=== PATIENT | male | born 1950 | race Caucasian/White ===

== ENCOUNTER 2024-08-24 10:45 | Inpatient (IN) | payer MEDICARE, SELFPAY ==
[2024-08-24 11:53] VITALS: BP 129/62; PULSE 58; RESP 17; TEMP 36.8; O2SAT 96; BMI 22.0
[2024-08-24] MEDS: Heparin Injection (Vial) 5,000 UNIT/ML VIAL 5000 UNIT SC ×2 (14:27→21:34)
[2024-08-24 17:43] VITALS: BP 124/61; PULSE 55; RESP 16; TEMP 37; O2SAT 97
[2024-08-24] MEDS: Atorvastatin Calcium 80 MG Tablet PO (21:37)
[2024-08-25 03:15] VITALS: BMI 22.0
[2024-08-25] MEDS: Heparin Injection (Vial) 5,000 UNIT/ML VIAL 5000 UNIT SC ×2 (05:39→14:36)
[2024-08-25 05:45] VITALS: BP 123/65; PULSE 56; RESP 18; TEMP 36.6; O2SAT 97
[2024-08-25 05:50] LABS: Hematocrit 46.5 % (40-54); Hemoglobin 15.4 g/dL (13.0-16.5); Mean Corp Hgb Conc 33.1 g/dL (32-36); Mean Corpuscular Hgb 29.1 pg (27.0-32.0); Mean Corpuscular Volume 87.7 fL (80-94); Mean Platelet Vol. 8.7 fl (6.2-12.0); Platelet Count 207 K/mm3 (150-450); RBC Distribution Width CV 12.3 % (11.6-14.6); RBC Distribution Width SD 39.4 fl (35.1-43.9); White Blood Count 6.2 K/mm3 (4.4-11.0)
[2024-08-25 06:23] LABS: ALB/GLOB Ratio 1.1 RATIO (0.9-2.4); AST(SGOT) 65 U/L (15-37); Alanine Aminotransfer ALT/SGPT 84 U/L (16-61); Albumin, Serum 3.5 g/dL (3.2-5.0); Alkaline Phosphatase 89 U/L (45-117); Anion Gap 5 (5-15); BUN 25 mg/dL (7-18); BUN/Creat Ratio 17.9 RATIO (10-20); Calcium,Total 8.9 mg/dL (8.5-10.1); Chloride 104 mmol/L (98-107); EST Glomerular Filtration Rate 53 mL/min (>60); Est Glom Filt Rate - Afr Amer 64 mL/min (>60); Estimated Creatinine Clearance 45.18 ml/min; Globulin 3.1 g/dL (2.2-4.2); Glucose 99 mg/dL (74-106); Magnesium 2.1 mg/dL (1.6-2.6); Phosphorus 3.3 mg/dL (2.5-4.9); Potassium 4.4 mmol/L (3.5-5.1); Protein, Total 6.6 g/dL (6.4-8.2); Sodium Level 137 mmol/L (136-145)
[2024-08-25] MEDS: Aspirin E.C. 81 MG Tablet PO (08:14)
[2024-08-25] MEDS: Clopidogrel Bisulfate 75 MG Tablet PO (08:14)
[2024-08-25] MEDS: amLODIPine 5 MG Tablet PO (08:14)
[2024-08-25] MEDS: Cholecalciferol (VIT D3) 25 MCG TABLET (1,000 UNITS) 50 MCG PO (08:14)
--- NOTE | 2024-08-25 09:43 | HP.PCM_ITS ---
HPI - General General Date of Admission: 08/24/24 Date of Service: 08/25/24 Chief Complaint: Poststroke debility HPI Narrative RADU FLORES, is a 73-year-old M who denied any significant medical history other than ocular migraines who presented to [facility] on 08/20/2024 complaining of slurred speech and right-sided weakness. He also complained of nausea without vomiting as well as dizziness. He had first noticed the symptoms on 08/19/2024 when he was hiking. Noncontrast CT brain was negative for acute stroke. 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 NIHSS score was reportedly 0. Teleneurology was consulted and he was not a candidate for thrombolytics due to the last known well being greater than 4.5 hours prior to presentation to the emergency department. He was given a loading dose of Plavix 300 mg and then started on 75 mg daily. He was also giving a loading dose of aspirin, 325 mg, and then started on 81 mg daily. He was also started on atorvastatin 80 mg nightly. After admission he was started on amlodipine 5 mg daily. He was admitted to a telemetry floor for further workup. MRI of the brain showed acute/early subacute infarction in the radha to the left of midline. Transthoracic echocardiogram showed a normal ejection fraction of 55 to 60% with no wall motion abnormalities. There was left ventricular concentric remodeling with grade 1 diastolic dysfunction. Bubble contrast study was negative. Left and right atria were both of normal size. There was evidence of mild aortic valve stenosis. The right ventricular systolic pressure was estimated at 36 which is consistent with mild pulmonary hypertension. LDL was 166 and the HDL was 49. Triglycerides were 83. Hemoglobin A1c was 5%. He was seen by therapy at the previous hospital and they recommended acute [place] rehab [place]. He was transferred to the acute inpt rehab unit at [facility] on 08/24/24 for 3 hours of therapy daily to restore function/independence at or near his level prior to the stroke. Afebrile VSS -heart rate since admission has ranged from 55-58. Blood pressure has ranged from 123/65 to 129/62. Maintaining appropriate oxygen saturation on RA - 96 to 97% Oral intake - FOOD good FLUIDS good Discussed with nursing - no problems that need addressed. Slept well last night Reviewed the THERAPY notes Medication list reviewed. All lab drawn this morning was personally reviewed. The CBC is normal. Sodium is 137 and the potassium is 4.4. The BUN is 25 with a creatinine of 1.4 and a GFR of 53. Phosphorus is 3.3 and the magnesium is 2.1. Calcium is within normal limits. Transaminases are mildly elevated. The AST is 65 and the ALT is 84. Bili and alk phos are within normal limits. [facility] Medical History (Updated 08/25/24 @ 18:[address] Mary Carmen Howard DO) Essential tremor Dyslipidemia HTN (hypertension) Ocular migraine Stroke/cerebrovascular accident Home Medications ?Medication ?Instructions ?Recorded ?Last Taken ?Type amlodipine 5 mg tablet (Norvasc) 5 mg PO DAILY bp 09/16 Unknown History aspirin 81 mg tablet,delayed 81 mg PO DAILY heart 09/16 Unknown History release (Adult Low Dose Aspirin) atorvastatin 80 mg tablet (Lipitor) 80 mg PO QHS carley sterol 08/24/24 Unknown History cholecalciferol (vitamin D3) 25 50 mcg PO DAILY vitami n 08/24/24 Unknown History mcg (1,000 unit) chewable tablet (Vitamin D3) clopidogrel 75 mg tablet (Plavix) 75 mg PO DAILY strok e 08/24/24 Unknown History Allergy/AdvReac Type Severity Reaction Status Date / Time Penicillins Allergy Mild Rash Verified 08/24/24 11:59 lactase AdvReac Mild Diarrhea Verified 08/24/24 11:59 Family History (Updated 08/25/24 @ 17:[address] Mary Carmen Howard DO) Mother , in her mid nineties. Stroke at 95 CVA (cerebral vascular accident) Hypertension Heart disease Father , at [id number] Cancer Lung cancer Heart disease Surgical History (Updated 08/25/24 @ 16:[address] Mary Carmen Howard DO) History of tonsillectomy History of herniorrhaphy History of circumcision History of appendectomy Social History (Updated 08/25/24 @ 17:[address] Mary Carmen Howard DO) household members: spouse housing: house Smoking Status: Never smoker alcohol intake: current alcohol intake frequency: holidays/special occasions only ROS Review of Systems ROS Unobtainable: Denies due to encephalopathy, due to endotracheal tube, due to mental condition or due to mental status Constitutional Constitutional: Reports fatigue and snoring; Denies anorexia, change in weight, chills, fever(s), night sweats or weakness Eyes Eyes: Denies blurry vision, change in vision, eye pain or loss of vision ENT HEENT: Reports disequillibrium, dizziness and foreign body in nose; Denies abnormal hearing, dysphagia, headache(s), hearing loss, nasal congestion or sore throat Cardiovascular Cardiovascular: Denies chest pain, dyspnea on exertion, edema, lightheadedness, orthopnea, palpitations, paroxysmal nocturnal dyspnea or syncope Respiratory/Chest Respiratory/Chest: Reports snoring and other Details: restless leg at night at times. ; Denies cough, dyspnea, shortness of breath at rest, shortness of breath with exertion or wheezing Gastrointestinal Gastrointestinal: Denies abdominal pain, constipation, diarrhea, dyspepsia, hematemesis, hematochezia, nausea or vomiting Genitourinary Genitourinary: Reports nocturia and other Details: Nocturia 1-2 times a night. Stream is little slower than normal but not retaining. ; Denies dysuria, hematuria, urinary frequency, urinary hesitancy, urinary incontinence or urinary urgency Musculoskeletal Musculoskeletal: Denies back pain, joint pain, joint swelling or neck pain Integumentary Integumentary: Denies acne, changing lesions, jaundice or rash Neurologic Neurologic: Reports disequilibrium, dizziness, focal weakness, lack of coordination, restless legs and other Details: some trouble word finding and some slurring of speech. Thought process seems a little slower than his normal ; Denies confusion, headache(s), paresthesias, seizures or tremor(s) Psychiatric Psychiatric: Denies anxiety, depression, homicidal ideation or suicidal ideation Endocrine Endocrinology: Denies change in body appearance, polydipsia or polyuria Hematologic/Lymphatic Hematologic/Lymphatic: Denies easy bleeding, easy bruising or lymphadenopathy Allergic/Immunologic Allergic/Immunologic: Denies rhinitis, eczemia or asthma Vital Signs Vital Signs Vital Signs: 08/24/24 11:53 08/24/24 17:43 08/24/24 21:47 Temperature 98.3 F 98.6 F Temperature Source Oral Temporal Pulse Rate 58 L 55 L Pulse Strength Normal (2+) Respiratory Rate 17 16 Blood Pressure 129/62 H 124/61 H Blood Pressure Mean 84 82 Blood Pressure Source Monitor Monitor Blood Pressure Position Semi-Fowlers Sitting Blood Pressure Location Left Arm Left Arm Pulse Ox 96 97 Oxygen Delivery Method Room Air Room Air 08/25/24 05:45 Temperature 97.9 F Temperature Source Oral Pulse Rate 56 L Pulse Strength Respiratory Rate 18 Blood Pressure 123/65 H Blood Pressure Mean 84 Blood Pressure Source Monitor Blood Pressure Position Semi-Fowlers Blood Pressure Location Left Arm Pulse Ox 97 Oxygen Delivery Method Room Air Weight Weight: 145 lb 8.081 oz Body Mass Index (BMI) 22.0 Indicators for Scoring Admitted with or Primary Diagnosis of CVA/Stroke: Yes Hx of CVA/Stroke: Yes Modified Columbia Score MRS Score at time of Evaluation: 3-Moderate disability NIHSS NIHSS 1a. Level of Consciousness: Alert; keenly responsive 1b. LOC Questions: Answers BOTH questions correctly. 1c. LOC Commands: Performs both tasks correctly. 2. Best Gaze: Normal 3. Visual: No visual loss 4. Facial Palsy: Normal symmetrical movements 5a. Left Arm: No drift; arm holds 90 (or 45) degrees for full 10 seconds 5b. Right Arm: No drift; arm holds 90 (or 45) degrees for full 10 seconds (no drift but, the staff development manager strength is weaker on the R and he is R handed. ) 6a. Left Leg: No drift; leg holds 30-degree position for full 5 seconds 6b. Right Leg: No drift; leg holds 30-degree position for full 5 seconds (definitely weaker in the R leg and decreased plantar and dorsiflexion with the R foot) 7. Limb Ataxia: Absent 8. Sensory: Normal; no sensory loss 9. Best Language: [id number] aphasia; (very mild with occasional word finding difficulty. Had trouble identifying the weiner but, was eventually able to name it) 10. Dysarthria: [id number] dysarthria; 11. Extinction and Inattention: No abnormality Total: 2 Stroke Questions Stroke Team Activated: No Physical Exam Const alert, oriented x3, no apparent distress, healthy appearing and well nourished General Appearance: cooperative, well kempt and well developed HEENT head/scalp atraumatic and hearing grossly normal bilaterally Eyes PERRL, EOMs intact bilaterally, conjunctivae normal and no scleral icterus Eyes Narrative: No discharge from the eyes and no mattering of the eyelashes. General Eye: normal appearance of both eyes Neck supple, no JVD and No nodes Neck Narrative: Soft carotid bruits versus radiation of the murmur. General: trachea midline Carotids: other Other Details: Brisk carotid upstroke with good pulse volume Chest Chest: symmetrical chest wall rise Resp normal respiratory effort, normal air movement, no use of accessory muscles and clear to auscultation bilaterally Effort and Inspection: able to speak in complete sentences and symmetric chest movement Cardio regular rate, regular rhythm, S1 normal heart sound, S2 normal heart sound, no rub and no gallops Cardio Narrative: No ectopy. Stage II systolic ejection murmur heard best at the second right intercostal space with radiation to the lower left sternal border and apex. GI normal to inspection, nondistended, normoactive bowel sounds, soft to palpation and non-tender GI Narrative: No guarding with palpation and no abdominal bruits. no CVA tenderness Back/Spine normal to inspection Back/Spine Narrative: No pain with palpation/percussion over the vertebrae. No scoliosis Extremity no calf tenderness and no pedal edema Skin no jaundice Skin Narrative: Patchy ecchymosis over the abdominal wall secondary to heparin injections. No rashes Neuro oriented x3, CN's II-XII intact bilaterally, moves all extremities and no sensory deficits noted Neuro Narrative: No ataxia. No extinction. No visual field cuts. Mild dysarthria. Occasional trouble with word finding. Definitely weaker in the right arm and right leg the knee is on the left side. Also has weaker plantarflexion and dorsiflexion of the right foot. Tongue protrudes on the midline. Palate elevates symmetrically. Denies difficulty swallowing. Having some trouble with reading. Disequilibrium with ambulation. Improved somewhat with a walking stick Psych cooperative and affect normal Appearance: grossly normal, appropriate and well kempt Attitude: calm and engaged Activity / Motor Behavior: appropriate eye contact Results Lab / Micro Data 08/25/24 05:39 08/25/24 05:39 Labs: Laboratory Results - last 24 hr 08/25/24 05:39: WBC 6.2, RBC 5.30, Hgb 15.4, Hct 46.5, MCV 87.7, MCH 29.1, MCHC 33.1, RDW Std Deviation 39.4, RDW Coeff of Shimon 12.3, Plt Count 207, MPV 8.7, Sodium 137, Potassium 4.4, Chloride 104, Carbon Dioxide 27.0, Anion Gap 5, BUN 25 H, Creatinine 1.40 H, Estim Creat Clear Calc 45.18, Est GFR (MDRD) Af Amer 64, Est GFR (MDRD) Non-Af 53 L, BUN/Creatinine Ratio 17.9, Glucose 99, Calcium 8.9, Phosphorus 3.3, Magnesium 2.1, Total Bilirubin 0.80, AST 65 H, ALT 84 H, Alkaline Phosphatase 89, Total Protein 6.6, Albumin 3.5, Globulin 3.1, Albumin/Globulin Ratio 1.1 Assessment & Plan Assessment/Plan (1) Debility: (2) Stroke/cerebrovascular accident: QUALIFIERS: CVA mechanism: unspecified Qualified Code(s): I63.9 - Cerebral infarction, unspecified PLAN: Left radha (3) Dysarthria: (4) Right-sided muscle weakness: (5) Cognitive dysfunction: (6) Dysequilibrium: (7) Grade I diastolic dysfunction: (8) Mild aortic stenosis: (9) LVH (left ventricular hypertrophy): (10) Mild pulmonary hypertension: PLAN: PA systolic was estimated at 36 on a transthoracic echocardiogram. (11) Restless leg: PLAN: Occasional (12) Bradycardia: (13) Dyslipidemia: (14) HTN (hypertension): QUALIFIERS: Hypertension type: primary hypertension Qualified Code(s): I10 - Essential (primary) hypertension (15) Essential tremor: PLAN: Has never seen a neurologist for this and has never been on medication. He does have a relative with essential tremor who is on medication. He will have to follow up with neurology for stroke so will also have neurology address the tremor. (16) Transaminitis: PLAN: Due to atorvastatin 80 mg? Fatty infiltration PLAN: Plan PLAN PT for gait stability OT for ADL's ST for evaluation Analgesics as needed Bowel protocol Fall precautions Assess for Anxiety/Depression GI prophylaxis -not necessary at this time. He denies any history of peptic ulcer disease and he also denies nausea/vomiting/heartburn/epigastric pain. DVT prophylaxis with Lovenox 40 mg subcu daily Follow up with PCP, neurology, cardiology following DC from IP Rehab AM lab including CMP, CBC, Mag and Phos -personally reviewed We discussed the goals for treatment. BP<130/80, LDL 70 or less 30-day event monitor at discharge Overnight trending pulse ox tonight Obtain records from PCP, marilyn any liver testing. 1. Do you snore loudly? Yes 2. Do you often feel tired, fatigued or sleepy during the day? No 3. Has anyone ever observed you stop breathing during sleep? No, but he has awakened himself snoring. 4. Do you have (or are you being treated for) HTN? Yes BMI 22.1 AGE 73 Neck circumference less than 40 cm Gender male Total 4 Falls asleep easily when reading or riding in a car for more than 15-20 minutes. Does not nap. Has restless legs at night. Admitted with stroke. Nocturia. [place] in the mornings.....he has an elastic band he applies to the top of his head and around the chin when sleeping to help with snoring. PA pressure is elevated at 36. Charges/Coding Visit Charges Inpatient E&M: 36322 Init Hosp L3
--- NOTE | 2024-08-25 09:44 | REHABEVAL_ITS ---
Admission Information Primary Diagnosis:: Poststroke debility Status Changes from Prescreening?: No changes Identified Actual Problem List:: Cognitve Impr/Memory Loss, Mobility Impaired, Self Care Deficit and Know.Dfct of Medicaitons Potential Problem List:: DVT, Bleeding, Infection, UTI, Aspiration, Falls, Skin Integrity and Depression Risk of Complications DVT: LMWH and ANUPAMA Hose Bleeding: Monitor Lab Values, Nursing to Teach Precautions for anti-coagulation therapy., Wound, if applicable, to be assessed every shift. and Stroke patients assessed for lethargy or change in status. Infection: Clinical Staff to Monitor for S/S of infection: and S/S of infection include fever, redness, warmth, etc. Urinary Tract Infection: Monitor for frequency, burning, discomfort, or incontinence. and Nursing will obtain urine sample for urinalysis and C&S when ordered. Aspiration: Clinical staff will monitor for coughing, drooling, congestion., Speech will evaluate swallowing and dsyphasia. and Nursing will monitor patient swallowing during meals. Falls: Patient will be evaluated for Fall Precautions and Patient will be placed on Fall Precautions as indicated per protocol. Skin Breakdown: Nursing will assess skin daily using assessment tool. and Nursing will place on Skin Breakdown Precautions as indicated. Pain: Clinical staff will assess patient's pain level per protocol., Medications will be given, if needed, and the pain level reassessed. and Other methods: Massage, distraction, decrease stimulus, etc. used PRN. Plan of Care Patient requires physician specializing in physical medicine and rehab oversight to provide close medical supervision of rehab issues including: Pain Management, Sleep Problems, Bowel and Bladder, Medical and co-morbidity Management, DVT prophylaxis, Rehabilitation Leadership and Coordination of treatment team Patient needs Physical Therapy: For a minimum of 1 hour and At least 5 out of 7 days Patient needs Physical Therapy to improve:: Mobility, Strengthening, Transfers, Stretching, ROM, Endurance, Stairs, Gait and Balance Patient needs Occupational Therapy: For a minimum of 1 hour and At least 5 out of 7 days Patient needs Occupational Therapy to improve ADL's incl.: Eating, Grooming, Bathing, Dressing, Toileting, Toilet transfers, Community Reintegration, Higher functioning activities, Household tasks, Adaptive Equipment, Splinting and Other activities as determined Patient requires speech therapy: For a minimum of 1 hour and At least 5 out of 7 days Patient requires speech therapy for: Swallowing, Cognition, Language Skills and Compensatory Strategies Patient requires 24/7 Rehabilitation Nursing for: Pain Issues, Identifying and preventing risk factors, Monitoring and reporting current medical conditions, Assisting with ambulation, transfer, and all ADL's, Teaching patients about d isease process and medications, Family teaching, Providing safe environment, Bowel and Bladder Issues, Skin integrity and Medication Management Patient needs Coating Mixer Supervisor/ Case Management for: Discharge Planning, Arranging Home Equipment or Services and Family Interventions Patient needs Dietary and Nutrition Services for: Adequate Nutrition, Nutr itional Supplements and Nutritional Education Goals Goals Patient will remain: free from falls Patient will perform eating at: MOD I level of assist. Patient will perform bed mobility at: MOD I level of assist. Patient will complete transfers from bed to chair at: MOD I level of assist. Patient will ambulate: - (500 feet on various surfaces independently or with least restrictive device at mod I) Patient will complete upper body dressing at: MOD I level of assist. Patient will complete lower body dressing at: MOD I level of assist. (With adaptive equipment as needed) Patient will complete toilet transfer at: MOD I level of assist. Patient will complete toileting at: MOD I level of assist. Patient will perform bathing at: MOD I level of assist. (Upper body bathing independently and lower body bathing at mod I with adaptive equipment as necessary) Patient will perform Tub/Shower transfer at: - (Supervision for the first 1 to 2 weeks using DME as needed) Patient will complete grooming at: MOD I level of assist. (While standing at the sink) Patient will complete home management skills at: MOD I level of assist. Patient will achieve: - (14 steps with 1 handrail at standby assist to allow access to his basement) Patient will have pain level of: of 3 or less Patient's skin will: remain intact Patient will receive: adequate nutrition. Discharge Planning Pt Prognosis for Sig. Practical Improv. w/in Reasonable Time: Good Estimated Length of stay (days): 14 Anticipated D/C Destination: Home with Outpt Therapy Was Preadmission Assessment Accurate?: Yes
--- NOTE | 2024-08-25 16:15 | CHAPLAIN ---
Type of Pastoral Visit _x__ Initial Visit ___ Follow-up Visit ___ On-call Visit ___ General Patient Visit ___ Spiritual Assessment ___ Family Conference ___ Bereavement ___ Rapid Response ___ Code Blue ___ Other (describe below) Pastoral Care Referral From _x__ Patient ___ Family ___ Nurse ___ Physician ___ Game Designer/Creative Director ___ Sawmill Equipment Operator ___ Other (describe below) Sacrament/Intervention _x__ Active listening ___ Anointing ___ Sabianism ___ Bereavement ___ Communion _x__ Laila exploration ___ _x__ Life review _x_ Prayer ___ Reconciliation ___ Sacrament of Sick _x__ Supportive presence ___ Wedding ___ Other (describe below) Pastoral Comments good conversation to get acquainted with the patient; pt is optimistic about his care and recovery; pt has family and holiness support; pt gives some life review and information about his holiness; pt has strong laila in God and welcomes prayer and presence of barrel assembly inspector today
[2024-08-25 17:00] VITALS: BMI 22.0
[2024-08-25] MEDS: Atorvastatin Calcium 80 MG Tablet PO (21:59)
[2024-08-25 22:53] VITALS: PULSE 68; O2SAT 97
[2024-08-26 05:45] VITALS: BP 128/62; PULSE 61; RESP 16; TEMP 36.7; O2SAT 97
[2024-08-26] MEDS: Enoxaparin 40 MG/0.4 ML Syringe SC (05:47)
[2024-08-26] MEDS: amLODIPine 5 MG Tablet PO (09:25)
[2024-08-26] MEDS: Aspirin E.C. 81 MG Tablet PO (09:25)
[2024-08-26] MEDS: Clopidogrel Bisulfate 75 MG Tablet PO (09:25)
[2024-08-26] MEDS: Cholecalciferol (VIT D3) 25 MCG TABLET (1,000 UNITS) 50 MCG PO (09:26)
[2024-08-26 10:58] VITALS: O2SAT 96
--- NOTE | 2024-08-26 14:14 | PCM.PROGNOTE ---
Subjective Subjective Afebrile VSS -blood pressure is at goal. Heart rate is ranged from 56-68 over the past 24 hours. Maintaining appropriate oxygen saturation on RA Oral intake - FOOD good FLUIDS good I&O are not accurate. Staff has been refilling his ice water without keeping track. Discussed with nursing - no problems that need addressed Reviewed the THERAPY notes ST was told by the pt that they were thickening his liquids at the previous hospital. He complains that his vocal quality is more harsh than it was previously. Using a walking stick for ambulation.....more stable. Medication list reviewed. I reviewed the overnight trending pulse ox and there are no desaturation events. Denies cephalgia, vertigo, chest pain, shortness of breath, cough, palpitations, nausea/vomiting/abdominal pain, dysuria and calf tenderness. Tells me that he slept well last night. Objective Data Objective Data Vital Signs: Vital Signs Temp Pulse Resp BP Pulse Ox O2 Del Method O2 Flow Rate 98.0 F 61 16 128/62 H 96 Room Air 0 08/26/24 05:45 08/26/24 05:45 08/26/24 05:45 08/26/24 05:45 08/26/24 10:58 08/26/24 10:58 08/25/24 22:53 FiO2 21 08/25/24 22:53 Oxygen Flow Rate (L/min) 0 Oxygen Delivery Method Room Air Weight: 145 lb 8.081 oz Body Mass Index (BMI) 22.0 Intake & Output: Intake and Output for Last 24 Hours 08/24/24 08/25/24 08/26/24 23:59 23:59 23:59 Intake Total 600 / 1000 1940 / 1940 840 / 840 Output Total 1200 / 1200 1850 / 1950 800 / 800 Balance -600 / -200 90 / -10 40 / 40 Lab / Micro Data 08/25/24 05:39 08/25/24 05:39 Physical Exam Const alert and oriented x3 General Appearance: cooperative HEENT moist oral mucous membranes Resp normal respiratory effort and clear to auscultation bilaterally Effort and Inspection: Negative for tachypneic Cardio regular rate, regular rhythm, no rub and no gallops Cardio Narrative: No ectopy. No change in the aortic stenosis murmur. GI normal to inspection, nondistended, normoactive bowel sounds, soft to palpation and non-tender GI Narrative: No abdominal bruits Skin Rashes: no rashes Assessment & Plan Assessment/Plan (1) Debility: (2) Stroke/cerebrovascular accident: QUALIFIERS: CVA mechanism: unspecified Qualified Code(s): I63.9 - Cerebral infarction, unspecified PLAN: Left radha (3) Dysarthria: (4) Right-sided muscle weakness: (5) Cognitive dysfunction: (6) Dysequilibrium: (7) Grade I diastolic dysfunction: (8) Mild aortic stenosis: (9) LVH (left ventricular hypertrophy): (10) Mild pulmonary hypertension: PLAN: PA systolic was estimated at 36 on a transthoracic echocardiogram. (11) Restless leg: PLAN: Occasional (12) Bradycardia: (13) Dyslipidemia: (14) HTN (hypertension): QUALIFIERS: Hypertension type: primary hypertension Qualified Code(s): I10 - Essential (primary) hypertension (15) Essential tremor: PLAN: Has never seen a neurologist for this and has never been on medication. He does have a relative with essential tremor who is on medication. He will have to follow up with neurology for stroke so will also have neurology address the tremor. (16) Transaminitis: PLAN: Due to atorvastatin 80 mg? Fatty infiltration PLAN: Plan 1. Continue therapy 2. Speech therapy plans on a FEES to look for silent aspiration/dysphagia 3. Follow up with neurology as OP for stroke and for essential tremor. 4. 30-day event monitor at discharge and follow-up with cardiology. 5. Continue dual antiplatelet agents for a total of 3 to 4 weeks. 6. Recheck a lipid/liver panel on 09/01/2024 Charges/Coding Visit Charges Inpatient E&M: 62187 Subs Hosp L1
[2024-08-26 15:56] VITALS: BMI 22.0
[2024-08-26 17:36] VITALS: BP 129/69; PULSE 57; RESP 16; TEMP 36.4; O2SAT 100
[2024-08-26] MEDS: Atorvastatin Calcium 80 MG Tablet PO (23:06)
[2024-08-27 06:00] VITALS: BP 135/61; PULSE 54; RESP 16; TEMP 36.3; O2SAT 98
[2024-08-27] MEDS: Enoxaparin 40 MG/0.4 ML Syringe SC (06:37)
[2024-08-27 07:08] VITALS: O2SAT 98
[2024-08-27] MEDS: Aspirin E.C. 81 MG Tablet PO (09:30)
[2024-08-27] MEDS: Cholecalciferol (VIT D3) 25 MCG TABLET (1,000 UNITS) 50 MCG PO (09:30)
[2024-08-27] MEDS: amLODIPine 5 MG Tablet PO (09:30)
[2024-08-27] MEDS: Clopidogrel Bisulfate 75 MG Tablet PO (09:30)
[2024-08-27 14:37] VITALS: BMI 22.0
[2024-08-27 18:00] VITALS: BP 122/60; PULSE 56; RESP 16; TEMP 36.4; O2SAT 98
[2024-08-27 20:00] VITALS: PULSE 56; RESP 16; O2SAT 98; BMI 22.0
[2024-08-27] MEDS: Atorvastatin Calcium 80 MG Tablet PO (20:05)
[2024-08-28] VITALS (7 sets, daily range): BP systolic 114–135; BP diastolic 56–64; PULSE 55–61; RESP 16–18; TEMP 36.6–37.2; O2SAT 96–98
[2024-08-28 05:17] LABS: Anion Gap 5 (5-15); BUN 21 mg/dL (7-18); BUN/Creat Ratio 16.8 RATIO (10-20); Calcium,Total 8.7 mg/dL (8.5-10.1); Chloride 104 mmol/L (98-107); Creatinine, Serum 1.25 mg/dL (0.70-1.30); EST Glomerular Filtration Rate 60 mL/min (>60); Est Glom Filt Rate - Afr Amer 73 mL/min (>60); Glucose 95 mg/dL (74-106); Potassium 3.8 mmol/L (3.5-5.1); Sodium Level 137 mmol/L (136-145)
[2024-08-28] MEDS: Enoxaparin 40 MG/0.4 ML Syringe SC (06:12)
[2024-08-28] MEDS: Cholecalciferol (VIT D3) 25 MCG TABLET (1,000 UNITS) 50 MCG PO (09:20)
[2024-08-28] MEDS: Clopidogrel Bisulfate 75 MG Tablet PO (09:21)
[2024-08-28] MEDS: Senna/Docusate Sodium 1 Tablet 2 TABLET PO (09:21)
[2024-08-28] MEDS: Aspirin E.C. 81 MG Tablet PO (09:21)
[2024-08-28] MEDS: amLODIPine 5 MG Tablet PO (09:21)
--- NOTE | 2024-08-28 10:26 | HP.SPFEES ---
FEES Patient Information Date of Evaluation: 08/27/24 Time of Evaluation: 14:00 Diagnosis: CVA I63.9 Referring Physician: Mary Carmen Howard Staff Providing this Care/Treatment:: LISA Direct Billable Minutes: 99 History: Past Medical History:: PMH: Essential tremor, Dyslipidemia, HTN, Ocular migraine, CVA. Pt presented to [facility] on 08/20/2024 complaining of slurred speech and right-sided weakness w/ associated nausea and dizziness while hiking. Noncontrast CT brain was negative for acute stroke. 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 NIHSS score was reportedly 0. MRI of the brain showed acute/early subacute infarction in the radha to the left of midline. He was transferred to the acute inpt rehab unit at [facility] on 08/24/24 for 3 hours of therapy daily to restore function/independence at or near his level prior to the stroke. Pt referred for ST consult to assess concerns for dysarthria, cognitive linguistic impairment, and dysphagia. BCAT completed revealing cognitive functioning to be WNL. Speech production assessment revealed mild dysarthria. He has been recommended for FEES due to hoarse nature of vocal quality and concerns for dysphagia. ST at [facility] had him briefly on thickened liquids. No hx of instrumental assessment of swallow function. Current Diet: Drinks/Liquids:: Thin Foods:: Regular Respiratory Status Observation:: Room Air Vocal Quality: Observations:: Hoarse Comments:: Mild Cognition: Observations:: WFL Position During FEES: Position During FEES:: Upright Location: In Chair Fiberoptic Endoscope: Size: 3.4 mm Nare Used:: Left Anatomical Findings: Anatomical Findings:: Scarring on the posterior pharyngeal wall in the nasopharynx consistent w/ hx of tonsillectomy. Cobblestoning on posterior pharyngeal wall. Posterior pharyngeal wall, arytenoids, epiglottic petiole, and ventricular folds have mild edema. Tissue reddish throughout pharynx. Cobblestoning and edema concerning for GERD. Will recommend GI consult. Vocal fold adduction mostly complete, but small gapping between the anterior 2/3 of folds. True vocal folds also presented w/ small protrusions bilaterally on the posterior 1/3 of the folds, suspicious of vocal fold nodules. Will recommend ENT consult. Decreased pharyngeal contraction evident w/ vocal glides. Secretions: Description:: Thin and Clear Location:: Oropharynx Comment:: Laryngeal vestibule across the true vocal folds Penetration-Aspiration Scale Penetration-Aspiration Scale Thin Liquids by Teaspoon Food/Drink Provided:: green-colored ice chips and water Swallow Onset Location:: Pyriform Sinuses PAS Score: PAS Score *1 Visual Analysis of Swallowing Efficiency and Safety (VASES) after the swallow: Oropharynx VASES Comments:: 10% vallecula, <5% aryepiglottic folds Thin Liquids by Single Cup Food/Drink Provided:: green-colored water Swallow Onset Location:: Aryepiglottic Folds PAS Score: PAS Score *1 Visual Analysis of Swallowing Efficiency and Safety (VASES) after the swallow: Oropharynx and Hypopharynx Comments:: <5% vallecula, <5% pyriform sinuses Thin Liquids by Sequential Cup Food/Drink Provided:: green-colored water Swallow Onset Location:: Pyriform Sinuses Visual Analysis of Swallowing Efficiency and Safety (VASES) after the swallow: Oropharynx, Hypopharynx and Vocal Folds Comments:: 5% vallecula, 5% pyriform sinuses, <5% true vocal folds Additional Comments:: delayed, reflexive cough effectively cleared trace contrast on vocal folds Thin Liquids by Single Straw Food/Drink Provided:: green-colored water Swallow Onset Location:: Tongue Base and Vallecula PAS Score: PAS Score *1 Visual Analysis of Swallowing Efficiency and Safety (VASES) after the swallow: Oropharynx Comments:: <5% vallecula Thin Liquids by Sequential Straw Food/Drink Provided:: green-colored water Swallow Onset Location:: Vallecula PAS Score: PAS Score *1 Visual Analysis of Swallowing Efficiency and Safety (VASES) after the swallow: Oropharynx and Hypopharynx Comments:: <5% vallecula, <5% aryepiglottic folds Regular Textures Food/Drink Provided:: Celestina Doone cookie Swallow Onset Location:: Pyriform Sinuses PAS Score: PAS Score *1 Visual Analysis of Swallowing Efficiency and Safety (VASES) after the swallow: Oropharynx and Hypopharynx Comments:: 20% vallecula, 5% pyriform sinuses Strategies Trialed:: Liquid wash = somewhat effective in clearing pharyngeal residues Chin tuck = somewhat effective in clearing pharyngeal residues Diagnosis/Impressions Diagnosis: Mild pharyngeal dysphagia R13.12 Impressions: -Decreased pharyngeal contraction w/ mild residue in the vallecula most notable w/ cookie trial. Liquid wash and chin tuck somewhat cleared vallecula residues. -Decreased airway closure during the swallow w/ trace laryngeal penetration of sequential sips of thin liquids by cup to the vocal folds. Reflexive, delayed cough fully cleared penetrated contrast. No aspiration observed. Recommendations Diet: Regular Textures and Thin Liquids Medication Administration:: Whole with liquids Compensatory Strategies: Small Bites, Small Sips, Slow Rate, Sitting upright and Remain sitting upright for 30 minutes after PO intake Recommend Repeat Instrumental Swallow Assessment: No Need for Skilled Speech Therapy Services: Yes Comments: -Ongoing assessment of diet tolerance and training in strategies to decrease aspiration risk and clear pharyngeal residues. If sensation of pharyngeal retention despite liquid wash, consider use of chin tuck to clear residues. -Training in oropharyngeal strengthening (Farzana, effortful, Aleksandar). Recommended Referrals: GI Consult and ENT Consult Education Completed: 1. Described result of evaluation. and 2. Pt understands evaluation & agrees with goals and treatment plan. Frequency Frequency: 4-5x /Week Duration: 2-4 Weeks Goals that are Established Goal #1: (LTG 1) The patient will consume LRD textures w/o overt s/s of aspiration with 90% acc w/ independent use of strategies to decrease risk for aspiration. Goal #2: (STG 1) The patient will complete oropharyngeal exercises X10-15 reps, 3X daily w/ min verbal cues to promote improved pharyngeal motility and airway closure during the swallow (effortful, Farzana, Aleksandar).
--- NOTE | 2024-08-28 10:52 | PCM.PROGNOTE ---
Subjective Subjective Kip was seen on team rounds today. Ijeoma Watt was present in the room. All questions were answered to their satisfaction. Afebrile VSS -blood pressures over the past 24 hours have ranged from 122/68 to 135/64. Heart rate is ranged from 54-56. Today while exerting himself it went up to 78. Maintaining appropriate oxygen saturation on RA Oral intake - FOOD good FLUIDS good The last 2 postvoid residuals have been less than 30. Discussed with nursing - He c/o L ear pain last night to nursing. Actually he tells me that the pain is in the R parieto-occipital area. It seems to come and go. He denies ever having shingles. Reviewed the THERAPY notes Medication list reviewed. BMP today showed a sodium of 137, potassium of 3.8, BUN of 21, down from 25 to 08/25/24, and a creatinine of 1.25 which is down from 1.40 on 08/25/2524. Denies lightheadedness, chest pain, shortness of breath, palpitations, nausea/vomiting/abdominal pain, dysuria and calf tenderness. Still feeling somewhat unsteady with ambulation marilyn, when performing a cognitive function while walking. Objective Data Objective Data Vital Signs: Vital Signs Temp Pulse Resp BP Pulse Ox O2 Del Method O2 Flow Rate 97.8 F 55 L 16 135/64 H 97 Room Air 0 08/28/24 06:09 08/28/24 06:09 08/28/24 06:09 08/28/24 06:09 08/28/24 07:57 08/28/24 07:57 08/25/24 22:53 FiO2 21 08/25/24 22:53 Oxygen Flow Rate (L/min) 0 Oxygen Delivery Method Room Air Weight: 145 lb 8.081 oz Body Mass Index (BMI) 22.0 Intake & Output: Intake and Output for Last 24 Hours 08/26/24 08/27/24 08/28/24 23:59 23:59 23:59 Intake Total 2004 1500 / 1500 440 / 440 Output Total 1800 / 1800 1150 / 1150 700 / 700 Balance 205 / 205 350 / 350 -260 / -260 Lab / Micro Data 08/25/24 05:39 08/28/24 04:28 Labs: Laboratory Results - last 24 hr 08/28/24 04:28: Sodium 137, Potassium 3.8, Chloride 104, Carbon Dioxide 28.0, Anion Gap 5, BUN 21 H, Creatinine 1.25, Estim Creat Clear Calc 50.60, Est GFR (MDRD) Af Amer 73, Est GFR (MDRD) Non-Af 60, BUN/Creatinine Ratio 16.8, Glucose 95, Calcium 8.7 Physical Exam Const alert, oriented x3 and no apparent distress General Appearance: cooperative HEENT head/scalp atraumatic HEENT Narrative: No rash on the scalp. Neck supple Resp clear to auscultation bilaterally Cardio regular rate and regular rhythm Cardio Narrative: no ectopy GI normal to inspection, nondistended, normoactive bowel sounds, soft to palpation and non-tender Extremity no calf tenderness General Extremity: Negative for edema Skin Rashes: no rashes Assessment & Plan Assessment/Plan (1) Debility: (2) Stroke/cerebrovascular accident: QUALIFIERS: CVA mechanism: unspecified Qualified Code(s): I63.9 - Cerebral infarction, unspecified PLAN: Left radha (3) Dysarthria: (4) Right-sided muscle weakness: (5) Cognitive dysfunction: (6) Dysequilibrium: (7) Grade I diastolic dysfunction: (8) Mild aortic stenosis: (9) LVH (left ventricular hypertrophy): (10) Mild pulmonary hypertension: PLAN: PA systolic was estimated at 36 on a transthoracic echocardiogram. (11) Restless leg: PLAN: Occasional (12) Bradycardia: (13) Dyslipidemia: (14) HTN (hypertension): QUALIFIERS: Hypertension type: primary hypertension Qualified Code(s): I10 - Essential (primary) hypertension (15) Essential tremor: PLAN: Has never seen a neurologist for this and has never been on medication. He does have a relative with essential tremor who is on medication. He will have to follow up with neurology for stroke so will also have neurology address the tremor. (16) Transaminitis: PLAN: Due to atorvastatin 80 mg? Fatty infiltration PLAN: Plan 1. Continue therapy 2. Plan discharge on 08/31/2024. 3. Will chaeck the scalp again tomorrow.......early Shingles? No sore throat, no nasal congestion, not coughing, no pain in the neck or the shoulders. Charges/Coding Visit Charges Inpatient E&M: 03927 Subs Hosp L2
--- NOTE | 2024-08-28 13:05 | CASEMGMT ---
Social Work IDT met with patient and for Team meeting. Discussed patient's progress in PT/OT/ST/SN. Educated to Medicare approval of 8 days with DC 09/01, however, offered DC 08/31 d/t no therapy scheduled. Pt/ agreed to 08/31. Pt is mod I using a walking stick. Denied DME needs at DC. IDT recommending OP PT/OT. Pt agreeable. SW verbally provided options. Pt prefers [facility]. can transport home and to appts. Plan: DC home with 08/31, [facility] PT/OT. Melissa Sims [facility] COORDINATOR
[2024-08-28] MEDS: Atorvastatin Calcium 80 MG Tablet PO (21:04)
[2024-08-28] MEDS: Acetaminophen 325 MG Tablet 650 MG PO (21:04)
[2024-08-29 00:25] VITALS: BMI 22.0
[2024-08-29 05:00] VITALS: BP 127/63; PULSE 47; RESP 16; TEMP 36.7; O2SAT 98; BMI 21.1
[2024-08-29] MEDS: Enoxaparin 40 MG/0.4 ML Syringe SC (05:12)
[2024-08-29] MEDS: Aspirin E.C. 81 MG Tablet PO (07:43)
[2024-08-29] MEDS: amLODIPine 5 MG Tablet PO (07:43)
[2024-08-29] MEDS: Cholecalciferol (VIT D3) 25 MCG TABLET (1,000 UNITS) 50 MCG PO (07:44)
[2024-08-29] MEDS: Clopidogrel Bisulfate 75 MG Tablet PO (07:44)
[2024-08-29 10:00] VITALS: PULSE 62; RESP 16; O2SAT 98
--- NOTE | 2024-08-29 12:04 | PCM.DC ---
Discharge Instructions Diet Discharge Diet: - (Low-fat, low-salt.) DC O2, CPAP, BIPAP needs Home O2 Discharge instructions: No Dressing / Incision Discharge Activity: May Not Drive (Do not drive until after you are seen at the drivers rehab program at [facility] and they release you to drive. ), May Shower and - (Use a cane or a walking stick to help with balance when you are outside your house and in the community. ) Weight Bearing Status: Full weight bearing Dressing / Incision Call your doctor if you observe: Fever of 101 or Higher, Inability to urinate, Shortness of breath, Dizziness, Fainting spells, Swelling in the ankles, Chest pain, Increased palpitations (irregular heartbeat), Calf discomfort, Uncontrolled pain and - (STROKE symptoms: facial droop, slurred speech, inability to get words out, weakness on 1 side of the body and not the other, numbness on 1 side of the body and not the other, inability to maintain your balance sitting or standing, vertigo. ) Follow Up Care Please Follow Up With: New PCP When: 09/19/24 at 2:40 Test Results: Test results from this visit will be discussed in further detail at your follow-up appointment, if applicable. Pending Tests Upon Discharge: none Discharge Plan Admission Admit Date/Time: 08/24/24 10:45 Primary Reason for Your Visit: Post stroke debility Attending Provider: Mary Carmen Howard Instructions Patient Instructions: Essential Tremor (ET), LVH, Chest Echocardiography, Understanding Heart Valves, Heart Valve Problems, Aortic Stenosis, Discharge Instructions for Stroke, AFib Additional Instructions / Restrictions: 1. You have high blood pressure. I suspect you have had this for a while now. the heart is a muscle and if you make it work hard pumping against a high blood pressure the wall gets thicker. This is called left ventricular hypertrophy and you have this. You also have what is called diastolic dysfunction which means the wall is thick and it does not relax as well which is often seen with uncontrolled BP. Your blood pressure now is well controlled on a medication called Amlodipine (also called Norvasc). You will continued taking this medication once a day. The goal for your BP is < 130/80. Your heart squeezes normally but, it does not relax well. This will likely improve with good BP control. You also have mild aortic stenosis. This means the aortic valve does not open as widely as it should. You should discuss this with cardiology when you see them. It will need to be followed periodically with an echocardiogram to make sure it is not getting worse. 2. Your cholesterol is high. There are 2 kinds of cholesterol, LDL and HDL. The LDL is the bad cholesterol and we want this to be low. In patients who have had a stroke or a heart attack the goal for the LDL is to keep it 70 or less. Your LDL at presentation to the emergency room was 166. The HDL is good cholesterol and can protect the heart. We like this number to be greater than 40 in a male and greater than 45 and a female. Your HDL is good at 49. Regular exercise helps to keep the HDL up. 3. There are 2 kinds of strokes. There is a hemorrhagic stroke where a blood vessel burst and bleeds into your head and this accounts for approximately 15% of all strokes. The most common kind of stroke is called an ischemic stroke which results from a narrowed artery in the brain or the neck or a blood clot that obstructs and artery. You had an ischemic stroke and it is in an area of the brain called the radha. One of the causes of blood clots that cause ischemic strokes is a problem with the rhythm of your heart called atrial fibrillation. I am giving you a handout that talks about atrial fibrillation for you to read at your convenience. We are giving you a prescription for acardiac monitor at [facility] from rehab. They will mail this to you along with directions on how to apply it. This will continuously monitor the heart rhythm. When it is done you will return it to the hospital (you can mail it back and there are instructions on how to do this). A couple weeks after the monitor is removed you will need to follow up with a distributor advertising material to review the results with you. IF you have patient then you will need to be on a blood thinner. either cardiology or your PCP can prescribe this. Another cause of small clots are platelets. Platelets are the type of blood cell that form a clump and damn the whole if you have a laceration/incision/abrasion so that you do not bleed excessively. Sometimes platelets get sticky in the arterial system and formed tiny plugs which can then occlude a small artery and lead to a stroke or a heart attack. All people who have had ischemic strokes and up on antiplatelet agents. You are currently on 2 antiplatelet agents and these are aspirin and Plavix (also called clopidogrel). Generally after an ischemic stroke you take 2 antiplatelet agents for 3 to 4 weeks and then discontinue Plavix. You will need to stay on Aspirin 81 mg daily (a baby aspirin) indefinitely to help prevent additional cardiovascular events going forward. Take it with food once daily. 5. Your essential tremor is very mild. At this point you probably do not need medication. I would discuss this tremor with the neurologist (Dr. Han) that you are going to follow up with for the stroke. 4. You have recovered very well and I anticipate you will continue to improve with additional therapy. It has been a pleasure getting to know you and Ijeoma Watt. If you or Ijeoma Watt have any questions after you leave rehab please do not hesitate to call me. OFFICE: [phone] CELL: [phone] NURSES [facility] ON REHAB: [phone] I have given you a bunch of information to ready. Call me if you have any questions. Discharge Orders/Prescriptions Prescriptions: New acetaminophen 325 mg Tablet 650 mg PO Q6H PRN PRN (Reason: Pain Score 1-10) Qty: 1 0RF Continued cholecalciferol (vitamin D3) [Vitamin D3] 25 mcg (1,000 unit) tablet,chewable 50 mcg PO DAILY atorvastatin [Lipitor] 80 mg tablet 80 mg PO QHS Qty: 30 0RF Rx Instructions: Take this medication at bedtime. clopidogrel [Plavix] 75 mg tablet 75 mg PO DAILY Qty: 12 0RF Rx Instructions: You can discontinue this medication when you run out. amlodipine [Norvasc] 5 mg tablet 5 mg PO DAILY Qty: 30 0RF aspirin [Adult Low Dose Aspirin] 81 mg tablet,delayed release (DR/EC) 81 mg PO DAILY Qty: 30 0RF Other Ambulatory Orders: 30 Day Event Recorder Preventi (Routine) Timeframe: 1 Week Facility: [facility] - Location: [facility] Ordered By: Dr. Mary Carmen Howard Referrals / Follow Up: [facility] [Provider Group] - 09/19/24 2:40 pm (Alfonso Jensen NP) Jovany Han MD [Non-Staff -Ordering Privileges] - Disposition Disposition (needs filled in before D/C Order can be placed): Home, Self Care
[2024-08-29 17:00] VITALS: BMI 21.1
--- NOTE | 2024-08-29 17:06 | DS.PCM_ITS ---
Providers Date of Admission: 08/24/24 Date of Discharge: 08/31/24 Primary Care Physician: [facility] [place]. none Reason For Visit: STROKE Diagnosis Discharge Diagnosis (1) Debility: Status: Acute Code(s): R53.81 - Other malaise (2) Stroke/cerebrovascular accident: Status: Acute Code(s): I63.9 - Cerebral infarction, unspecified Qualifiers: CVA mechanism: unspecified Qualified Code(s): I63.9 - Cerebral infarction, unspecified Plan: Left radha (3) Dysarthria: Status: Acute Code(s): R47.1 - Dysarthria and anarthria (4) Right-sided muscle weakness: Status: Acute Code(s): M62.81 - Muscle weakness (generalized) (5) Cognitive dysfunction: Status: Acute Code(s): F09 - Unspecified mental disorder due to known physiological condition (6) Dysequilibrium: Status: Acute Code(s): R42 - Dizziness and giddiness (7) Grade I diastolic dysfunction: Status: Acute Code(s): I51.89 - Other ill-defined heart diseases (8) Mild aortic stenosis: Status: Acute Code(s): I35.0 - Nonrheumatic aortic (valve) stenosis (9) LVH (left ventricular hypertrophy): Status: Acute Code(s): I51.7 - Cardiomegaly (10) Mild pulmonary hypertension: Status: Acute Code(s): I27.20 - Pulmonary hypertension, unspecified Plan: PA systolic was estimated at 36 on a transthoracic echocardiogram. (11) Restless leg: Status: Acute Code(s): G25.81 - Restless legs syndrome Plan: Occasional (12) Bradycardia: Status: Acute Code(s): R00.1 - Bradycardia, unspecified (13) Dyslipidemia: Status: Acute Code(s): E78.5 - Hyperlipidemia, unspecified (14) HTN (hypertension): Status: Chronic Code(s): I10 - Essential (primary) hypertension Qualifiers: Hypertension type: primary hypertension Qualified Code(s): I10 - Essential (primary) hypertension (15) Essential tremor: Status: Suspected Code(s): G25.0 - Essential tremor Plan: Has never seen a neurologist for this and has never been on medication. He does have a relative with essential tremor who is on medication. He will have to follow up with neurology for stroke so will also have neurology address the tremor. (16) Transaminitis: Status: Acute Code(s): R74.01 - Elevation of levels of liver transaminase levels Plan: Due to atorvastatin 80 mg? Fatty infiltration Plan 1. Continue therapy 2. Plan discharge on 08/31/2024. 3. Will chaeck the scalp again tomorrow.......early Shingles? No sore throat, no nasal congestion, not coughing, no pain in the neck or the shoulders. Medications at Discharge Home Medications cholecalciferol (vitamin D3) 25 mcg (1,000 unit) chewable tablet (Vitamin D3) 50 mcg PO DAILY vitamin 08/24/24 acetaminophen 325 mg tablet 650 mg (2 x 325 mg) PO Q6H PRN PRN Pain Score 1-10 #1 TAB 08/29/24 amlodipine 5 mg tablet (Norvasc) 5 mg PO DAILY bp #30 tabs 08/29/24 aspirin 81 mg tablet,delayed release (Adult Low Dose Aspirin) 81 mg PO DAILY heart #30 tabs 08/29/24 atorvastatin 80 mg tablet (Lipitor) 80 mg PO QHS cholesterol #30 tabs 08/29/24 clopidogrel 75 mg tablet (Plavix) 75 mg PO DAILY stroke #12 tabs 08/29/24 Hospital Course Operations None Procedures Transthoracic echo (Normal EF of 55 to 60% with no wall motion abnormalities. There was left ventricular concentric remodeling with grade 1 diastolic dysfunction. The bubble contrast study was negative for [id number] shunt. The left and right atria were normal size. There was mild aortic valve stenosis. Right v) Summary of Care Provided Minutes Spent on Discharge: 40 Hospital Course: KIP FLORES, is a 73-year-old M who denied any significant medical history other than ocular migraines who presented to [place] on 08/20/2024 complaining of slurred speech and right-sided weakness. He also complained of nausea without vomiting as well as dizziness. He had first noticed the symptoms on 08/19/2024 when he was hiking. Noncontrast CT brain was negative for acute stroke. 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 NIHSS score was reportedly 0. Teleneurology was consulted and he was not a candidate for thrombolytics due to the last known well being greater than 4.5 hours prior to presentation to the emergency department. He was given a loading dose of Plavix 300 mg and then started on 75 mg daily. He was also given a loading dose of aspirin, 325 mg, and then started on 81 mg daily. He was started on atorvastatin 80 mg nightly. After admission he was started on amlodipine 5 mg daily for elevated BP. He was admitted to a telemetry floor for further workup. MRI of the brain showed acute/early subacute infarction in the radha to the left of midline. Transthoracic echocardiogram showed a normal ejection fraction of 55 to 60% with no wall motion abnormalities. There was left ventricular concentric remodeling with grade 1 diastolic dysfunction. Bubble contrast study was negative. Left and right atria were both of normal size. There was evidence of mild aortic valve stenosis. The right ventricular systolic pressure was estimated at 36 which is consistent with mild pulmonary hypertension. LDL was 166 and the HDL was 49. Triglycerides were 83. Hemoglobin A1c was 5%. He was seen by therapy at the previous hospital and they recommended acute inpt rehab at [facility]. He was transferred to the acute inpt rehab unit at [facility] on 08/24/24 for 3 hours of therapy daily to restore function/independence at or near his level prior to the stroke. NIHSS at arrival on rehab was 2 4 mild to moderate dysarthria and mild to moderate aphasia with difficulty with word finding. Creatinine was elevated at 1.4 with a BUN of 25 but came down to 1.25 with better hydration. Bilirubin and alkaline phosphatase were within normal limits but the AST was mildly elevated at 65 and the ALT was elevated at 84. The liver profile and lipid profile were checked prior to [facility] on 08/31/24. Blood pressure was well-controlled on rehab on 5 mg of amlodipine. He has had no adverse side effects with amlodipine. He is tolerating atorvastatin 80 mg nightly with no complaints of myalgia. Postvoid residuals revealed no significant urine retention. At the time of discharge from rehab he is able to 22 sit to stands in 30 seconds without the use of his upper extremities to rise. He has performed a cognitive tug test in 8.28 seconds with no assistive device. He has ambulated up to 1689 feet on various surfaces using a walking stick at [facility] with no loss of balance. He is independent with transfers from various surfaces. He can a send/descend 13 steps with 1 handrail at supervision. He is independent with eating and supervision/set up for grooming, bathing, upper body dressing, lower body dressing, toileting/toilet transfer and tub/shower transfer. His speech is more crisp but, still not back at baseline. Occasionally slurs, marilyn when he is fatigued. Kip was discharged home on 08/31/24. He will follow up with Dr. Han from neurology. He has an appt scheduled with Al[facility]so [facility] NP at [facility] [place]. He was prescribed a 30-day event monitor which will be mailed to him. After the 30-day period is completed he will need an appointment with cardiology to review the results. Physical Exam Const alert, oriented x3 and no apparent distress General Appearance: cooperative HEENT head/scalp atraumatic and moist oral mucous membranes HEENT Narrative: No rash on the scalp. Some tenderness to palpation in the parieto-occipital area behind the left ear. Comes and goes. Eyes PERRL, EOMs intact bilaterally, conjunctivae normal and no scleral icterus Eyes Narrative: No discharge from the eyes and no mattering of the eyelashes General Eye: normal appearance of both eyes Neck supple Neck Narrative: Soft carotid bruits versus radiation the aortic stenosis murmur into both carotids. Brisk carotid upstroke with good pulse volume bilaterally Chest Chest: symmetrical chest wall rise Resp normal respiratory effort and clear to auscultation bilaterally Effort and Inspection: able to speak in complete sentences Cardio regular rate, regular rhythm, S1 normal heart sound and S2 normal heart sound Cardio Narrative: no ectopy. He has a stage 2/6 systolic ejection murmur heard best at the second right intercostal space with radiation to the left lower sternal border. Echocardiogram showed mild aortic stenosis. Jugular Venous Distention: Negative for JVD GI normal to inspection, nondistended, normoactive bowel sounds, soft to palpation and non-tender no CVA tenderness Extremity no calf tenderness General Extremity: Negative for edema Skin no jaundice General Skin Exam: no breakdown Rashes: no rashes Neuro oriented x3, CN's II-XII intact bilaterally, moves all extremities and no sensory deficits noted Neuro Narrative: Please see NIHSS scoring Psych thought process normal, cooperative, affect normal and speech normal Appearance: appropriate and well kempt Attitude: calm and engaged Weight / BMI Weight Weight: 139 lb 8.842 oz Body Mass Index (BMI) 21.1 ABG / Lab / Microbiology Data 08/25/24 05:39 08/28/24 04:28 Indicators for Scoring Admitted with or Primary Diagnosis of CVA/Stroke: Yes Hx of CVA/Stroke: Yes Modified [place] Score MRS Score at time of Evaluation: 2-Slight disability NIHSS NIHSS 1a. Level of Consciousness: Alert; keenly responsive 1b. LOC Questions: Answers BOTH questions correctly. 1c. LOC Commands: Performs both tasks correctly. 2. Best Gaze: Normal 3. Visual: No visual loss 4. Facial Palsy: Normal symmetrical movements 5a. Left Arm: No drift; arm holds 90 (or 45) degrees for full 10 seconds 5b. Right Arm: No drift; arm holds 90 (or 45) degrees for full 10 seconds 6a. Left Leg: No drift; leg holds 30-degree position for full 5 seconds 6b. Right Leg: No drift; leg holds 30-degree position for full 5 seconds 7. Limb Ataxia: Absent 9. Best Language: No aphasia; normal 10. Dysarthria: [id number] dysarthria; (Trace dysarthria.....has improved since he arrived on rehab and it was mild then. Slurs a little when he is getting tired. ) 11. Extinction and Inattention: No abnormality Total: 1 Stroke Questions Stroke Team Activated: No D/C Instructions Discharge Diet: - (Low-fat, low-salt.) Weight Bearing Status: Full weight bearing Call your doctor if you observe: Fever of 101 or Higher, Inability to urinate, Shortness of breath, Dizziness, Fainting spells, Swelling in the ankles, Chest pain, Increased palpitations (irregular heartbeat), Calf discomfort, Uncontrolled pain and - (STROKE symptoms: facial droop, slurred speech, inability to get words out, weakness on 1 side of the body and not the other, numbness on 1 side of the body and not the other, inability to maintain your balance sitting or standing, vertigo. ) DC O2, CPAP, BIPAP Needs PSN CPAP & BiPAP: BiPAP & CPAP Settings per PSN Fraction of Inspired Oxygen ( 08/25/24 22:53 FIO2) Home O2 Discharge instructions: No Pending Tests Upon Discharge: none Please Follow Up With: New PCP When: 09/19/24 at 2:40 Meaningful Use Info Meaningful Use Meaningful Use Diagnoses (Choose all that apply): Ischemic CVA CVA Therapy Assessed for PT,OT and/or ST?: Yes Ischemic Stroke Antithrombotic order at d/c?: Yes Dx of Atrial fib/flutter?: No Anticoagulant at discharge?: No Reason anticoagulant not ordered: Treatment not Indicated Statin Dosing Therapy Reference: STATIN DOSE THERAPY REFERENCE: * Patients > 75 years receive moderate or high dose statin therapy. * Patients 75 years or YOUNGER should receive HIGH intensity statin dose unless contraindicated. You will be required to document reason for non-treatment if statin daily dose does not meet guidelines. HIGH DOSE STATIN THERAPY DAILY Atorvastatin > than or = to 40 mg Rosuvastatin > than or = to 20 mg Amlodipine + Atorvastatin > than or = to 2.5/40 mg Ezetimibe + Simvastatin 10/80 mg Simvastatin 80mg Statins at discharge?: Yes If patient is 75 or younger, pt will be discharged on HIGH intensity statin.: Y es Primary Dx Acute Ischemic CVA?: Yes IV thrombolytic ordered during stay?: No Reason IV thrombolytic not ordered: Procedure not Indicated Discharge Plan Admission Admit Date/Time: 08/24/24 10:45 Primary Reason for Your Visit: Post stroke debility Attending Provider: Mary Carmen Howard Instructions Patient Instructions: Essential Tremor (ET), LVH, Chest Echocardiography, Understanding Heart Valves, Heart Valve Problems, Aortic Stenosis, Discharge Instructions for Stroke, AFib Additional Instructions / Restrictions: 1. You have high blood pressure. I suspect you have had this for a while now. the heart is a muscle and if you make it work hard pumping against a high blood pressure the wall gets thicker. This is called left ventricular hypertrophy and you have this. You also have what is called diastolic dysfunction which means the wall is thick and it does not relax as well which is often seen with uncontrolled BP. Your blood pressure now is well controlled on a medication called Amlodipine (also called Norvasc). You will continued taking this medication once a day. The goal for your BP is < 130/80. Your heart squeezes normally but, it does not relax well. This will likely improve with good BP control. You also have mild aortic stenosis. This means the aortic valve does not open as widely as it should. You should discuss this with cardiology when you see them. It will need to be followed periodically with an echocardiogram to make sure it is not getting worse. 2. Your cholesterol is high. There are 2 kinds of cholesterol, LDL and HDL. The LDL is the bad cholesterol and we want this to be low. In patients who have had a stroke or a heart attack the goal for the LDL is to keep it 70 or less. Your LDL at presentation to the emergency room was 166. The HDL is good cholesterol and can protect the heart. We like this number to be greater than 40 in a male and greater than 45 and a female. Your HDL is good at 49. Regular exercise helps to keep the HDL up. 3. There are 2 kinds of strokes. There is a hemorrhagic stroke where a blood vessel burst and bleeds into your head and this accounts for approximately 15% of all strokes. The most common kind of stroke is called an ischemic stroke which results from a narrowed artery in the brain or the neck or a blood clot that obstructs and artery. You had an ischemic stroke and it is in an area of the brain called the radha. One of the causes of blood clots that cause ischemic strokes is a problem with the rhythm of your heart called atrial fibrillation. I am giving you a handout that talks about atrial fibrillation for you to read at your convenience. We are giving you a prescription for acardiac monitor at [facility] from rehab. They will mail this to you along with directions on how to apply it. This will continuously monitor the heart rhythm. When it is done you will return it to the hospital (you can mail it back and there are instructions on how to do this). A couple weeks after the monitor is removed you will need to follow up with a parquetry floor layer to review the results with you. IF you have paroxysmal atrial fibrillation then you will need to be on a blood thinner. Either cardiology, neurology or your PCP can prescribe this. Another cause of small clots are platelets. Platelets are the type of blood cell that form a clump and damn the hole if you have a laceration/incision/abrasion so that you do not bleed excessively. Sometimes platelets get sticky in the arterial system and form tiny plugs which can then occlude a small artery and lead to a stroke or a heart attack. All people who have had ischemic strokes end up on antiplatelet agents. You are currently on 2 antiplatelet agents and these are aspirin and Plavix (also called clopidogrel). Generally after an ischemic stroke you take 2 antiplatelet agents for 3 to 4 weeks and then discontinue Plavix. You will need to stay on Aspirin 81 mg daily (a baby aspirin) indefinitely to help prevent additional cardiovascular events going forward. Take it with food once daily. 5. Your essential tremor is very mild. At this point you probably do not need medication. I would discuss this tremor with the neurologist (Dr. Han) that you are going to follow up with for the stroke. 4. You have recovered very well and I anticipate you will continue to improve with additional therapy. It has been a pleasure getting to know you and Ijeoma Watt. If you or Ijeoma Watt have any questions after you leave rehab please do not hesitate to call me. OFFICE: [phone] CELL: [phone] NURSES STATION ON REHAB: [phone] I have given you a bunch of information to ready. Call me if you have any questions. Discharge Orders/Prescriptions Prescriptions: New acetaminophen 325 mg Tablet 650 mg PO Q6H PRN PRN (Reason: Pain Score 1-10) Qty: 1 0RF Continued cholecalciferol (vitamin D3) [Vitamin D3] 25 mcg (1,000 unit) tablet,chewable 50 mcg PO DAILY atorvastatin [Lipitor] 80 mg tablet 80 mg PO QHS Qty: 30 0RF Rx Instructions: Take this medication at bedtime. clopidogrel [Plavix] 75 mg tablet 75 mg PO DAILY Qty: 12 0RF Rx Instructions: You can discontinue this medication when you run out. amlodipine [Norvasc] 5 mg tablet 5 mg PO DAILY Qty: 30 0RF aspirin [Adult Low Dose Aspirin] 81 mg tablet,delayed release (DR/EC) 81 mg PO DAILY Qty: 30 0RF Other Ambulatory Orders: 30 Day Event Recorder Preventi (Routine) Timeframe: 1 Week Facility: [facility] - Location: [facility] Ordered By: Dr. Mary Carmen Howard Referrals / Follow Up: [facility] [Provider Group] - 09/19/24 2:40 pm (Alfonso Jensen NP) Jovany Han MD [Non-Staff -Ordering Privileges] - Disposition Disposition (needs filled in before D/C Order can be placed): Home, Self Care Charges/Coding Visit Charges Inpatient E&M: 24716 Disch Hosp >30min
[2024-08-29 17:43] VITALS: BP 125/53; PULSE 54; RESP 16; TEMP 37; O2SAT 97
[2024-08-29] MEDS: Atorvastatin Calcium 80 MG Tablet PO (19:56)
[2024-08-30 01:06] VITALS: BMI 21.1
[2024-08-30] MEDS: Enoxaparin 40 MG/0.4 ML Syringe SC (05:36)
[2024-08-30 06:00] VITALS: BP 116/54; PULSE 55; RESP 15; TEMP 36.3; O2SAT 97
[2024-08-30 07:22] LABS: AST(SGOT) 49 U/L (15-37); Alanine Aminotransfer ALT/SGPT 110 U/L (16-61); Albumin, Serum 3.2 g/dL (3.2-5.0); Alkaline Phosphatase 139 U/L (45-117); Bilirubin, Direct 0.21 mg/dL (0.00-0.30); Cholesterol 104 mg/dL (200); High Density Lipoprotein 46 mg/dL; Protein, Total 6.2 g/dL (6.4-8.2); Triglycerides 60 mg/dL; Very Low Density Lipoprotein 12 mg/dL (5-40)
[2024-08-30 09:43] VITALS: BP 122/58; PULSE 80
[2024-08-30] MEDS: Clopidogrel Bisulfate 75 MG Tablet PO (09:44)
[2024-08-30] MEDS: Cholecalciferol (VIT D3) 25 MCG TABLET (1,000 UNITS) 50 MCG PO (09:44)
[2024-08-30] MEDS: amLODIPine 5 MG Tablet PO (09:44)
[2024-08-30] MEDS: Aspirin E.C. 81 MG Tablet PO (09:44)
[2024-08-30 16:22] VITALS: BMI 21.1
[2024-08-30 18:00] VITALS: BP 131/57; PULSE 58; RESP 15; TEMP 37.1; O2SAT 99
[2024-08-30] MEDS: Atorvastatin Calcium 80 MG Tablet PO (21:52)
[2024-08-30] MEDS: Senna/Docusate Sodium 1 Tablet 2 TABLET PO (21:52)
[2024-08-31 00:29] VITALS: BMI 21.1
[2024-08-31] MEDS: Enoxaparin 40 MG/0.4 ML Syringe SC (05:32)
[2024-08-31 05:35] VITALS: BP 111/56; PULSE 57; RESP 18; TEMP 37.2; O2SAT 96
[2024-08-31] MEDS: Aspirin E.C. 81 MG Tablet PO (08:41)
[2024-08-31] MEDS: amLODIPine 5 MG Tablet PO (08:41)
[2024-08-31] MEDS: Cholecalciferol (VIT D3) 25 MCG TABLET (1,000 UNITS) 50 MCG PO (08:41)
[2024-08-31] MEDS: Clopidogrel Bisulfate 75 MG Tablet PO (08:42)
[2024-08-31 08:43] VITALS: BP 117/54; PULSE 58
[2024-08-31] MEDS: Senna/Docusate Sodium 1 Tablet 2 TABLET PO (08:43)
[2024-08-31 12:35] VITALS: BMI 21.1
--- NOTE | 2024-08-31 13:41 | NURSING ---
DC to home with and verbalized DC instruct.
== END 2024-08-31 13:41 | disposition home or self-care (01) | DRG 57 ==
PROVIDERS: Admitting Provider Internal Medicine; Visit Provider Internal Medicine
DX: I69.351 Hemiplegia and hemiparesis following cerebral infarction affecting right dominant side (principal); I27.20 Pulmonary hypertension, unspecified; I69.320 Aphasia following cerebral infarction; G25.81 Restless legs syndrome; I10 Essential (primary) hypertension; I69.322 Dysarthria following cerebral infarction; G25.0 Essential tremor; E78.5 Hyperlipidemia, unspecified; Z79.82 Long term (current) use of aspirin; Z79.899 Other long term (current) drug therapy; Z79.02 Long term (current) use of antithrombotics/antiplatelets
CPT/HCPCS: 36415; 80048; 80053; 80061; 80076; 83735; 84100; 85027; 92507; 92523; 92526; 92612; 94668; 94762; 97110; 97112; 97116; 97129; 97130; 97162; 97166; 97530; 97535; 97802